=== PATIENT | female | born 1980 | race Asian ===

== ENCOUNTER 2021-10-30 17:30 | Outpatient (CLI) | payer BC | END 2021-10-30 23:59 | disposition home or self-care (01) | LOC: LAB.N 17:30 | PROVIDERS: ATTEND Family Medicine | DX: L02.214 Cutaneous abscess of groin (principal) | CPT/HCPCS: 87070; 87077; 87181; 87205 ==

== ENCOUNTER 2022-03-27 10:35 | Outpatient (CLI) | payer BC ==
[2022-03-27 19:21] LABS: BASOPHILS # (AUTO) 0.1 10^3/uL (0.0-0.1); BASOPHILS % (AUTO) 1.2 %; EOSINOPHILS # (AUTO) 0.4 10^3/uL (0.0-0.7); EOSINOPHILS % (AUTO) 6.1 %; HGB - HEMOGLOBIN 12.8 g/dL (12.0-16.0); LYMPHOCYTES # (AUTO) 2.1 10^3/uL (1.5-3.5); MEAN CORPUSCULAR HEMOGLOBIN 26.8 pg (27.0-31.0); MEAN CORPUSCULAR VOLUME 83.7 fL (81.0-99.0); MEAN PLATELET VOLUME 9.9 fL (7.9-10.8); MONOCYTES # (AUTO) 0.4 10^3/uL (0.0-1.0); MONOCYTES % (AUTO) 5.7 %; NEUTROPHILS # (AUTO) 3.6 10^3/uL (1.5-6.6); NEUTROPHILS % (AUTO) 54.7 %; PLT - PLATELET COUNT 298 10^3/uL (130-450); RED BLOOD COUNT 4.78 10^6/uL (4.20-5.40); RED CELL DISTRIBUTION WIDTH 13.1 % (12.0-15.0); WHITE BLOOD COUNT 6.5 x10^3/uL (4.8-10.8)
[2022-03-27 19:41] LABS: ALBUMIN 4.1 g/dL (3.2-5.5); ALBUMIN/GLOBULIN RATIO 1.1 (1.0-2.2); ALKALINE PHOSPHATASE 52 IU/L (42-121); ALT ALANINE AMINOTRANSFERASE 59 IU/L (10-60); AST ASPARTATE AMINOTRANSFERASE 25 IU/L (10-42); BILIRUBIN,TOTAL 0.5 mg/dL (0.2-1.0); BUN - BLOOD UREA NITROGEN 15 mg/dL (6-20); CALCIUM 9.4 mg/dL (8.5-10.3); CARBON DIOXIDE - CO2 29 mmol/L (21-32); CHLORIDE 105 mmol/L (101-111); CHOL/HDL RATIO 2.4 (<4.4); CHOLESTEROL 161 mg/dL; CREATININE 0.5 mg/dL (0.4-1.0); GFR - MDRD 135 (>89); GLUCOSE 100 mg/dL (70-100); HDL CHOLESTEROL 68 mg/dL; LDL CHOLESTEROL,CALCULATED 83 mg/dL; LDL/HDL RATIO 1.2 (<4.4); POTASSIUM 4.3 mmol/L (3.5-5.0); SODIUM 139 mmol/L (135-145); TOTAL PROTEIN 7.8 g/dL (6.7-8.2); TRIGLYCERIDES 51 mg/dL; VLDL CHOLESTEROL 10 mg/dL
[2022-03-27 19:53] LABS: THYROID STIMULATING HORMONE 0.75 uIU/mL (0.34-5.60)
== END 2022-03-27 10:36 | disposition home or self-care (01) ==
LOC: LAB.N 10:35
PROVIDERS: ATTEND Physician Assistant
DX: Z13.9 Encounter for screening, unspecified (principal); Z13.220 Encounter for screening for lipoid disorders; Z13.29 Encounter for screening for other suspected endocrine disorder
CPT/HCPCS: 36415; 80053; 80061; 83721; 84443; 85025

== ENCOUNTER 2022-07-19 14:48 | Outpatient (CLI) | payer BC ==
--- NOTE | 2022-07-20 11:52 | Mammography Report ---
BILATERAL DIGITAL SCREENING MAMMOGRAM 3D/2D: 07/19/2022 CLINICAL: Baseline exam. Routine screening. No prior exams were available for comparison. Both breasts are heterogeneously dense, which may obscure small masses (category c / 51-75% glandular tissue). There is an oval equal density asymmetry with an obscured, indistinct, and circumscribed margin and p unctate calcifications in the right breast at 1 o'clock anterior depth. No other significant masses, calcifications, or other findings are seen in either breast. IMPRESSION: INCOMPLETE: NEEDS ADDITIONAL IMAGING EVALUATION The oval equal density asymmetry in the right breast most likely is clustered cysts and is indetermin ate. Additional views with possible ultrasound are recommended. This exam was interpreted at Station ID: [id number]. NOTE: For mammograms, a report in lay terms will be sent to the patient. Approximately 15% of breast malignancies will not be visualized mammographically. In the management of a palpable breast mass, a negative mammogram must not discourage biopsy of a clinically suspicious lesion. Electronically Signed By: Deena santiago/miguel:07/20/2022 09:44:55 ACR BI-RADS Category 0: Incomplete 3340F PARENCHYMAL PATTERN: (D) - The breast(s) demonstrate(s) heterogeneously dense fibroglandular pareany ma. BI-RADS CATEGORY: (0) - 0 Mammo and [place] [id number] Immediate follow-up LATERALITY: (B)
== END 2022-07-19 14:49 | disposition home or self-care (01) ==
LOC: DI.N 14:48
DX: Z12.31 Encounter for screening mammogram for malignant neoplasm of breast (principal); R92.8 Other abnormal and inconclusive findings on diagnostic imaging of breast

== ENCOUNTER 2022-08-02 12:37 | Outpatient (CLI) | payer BC ==
--- NOTE | 2022-08-03 11:56 | Ultrasound Report ---
LIMITED ULTRASOUND OF RIGHT BREAST AND AXILLA: 08/02/2022 CLINICAL: Patient returns today to evaluate a focal asymmetry in the right breast. Comparison is made to exams dated: 08/02/2022 mammogram and 07/19/2022 mammogram - [facility]. Color flow ultrasound of the right breast 2 o'clock, retroareolar, and axilla regions was performed. Padilla scale images of the real-time examination were reviewed. There is a 1.3 cm x 1.2 cm x 0.6 cm irregular mass with an angular margin in the right breast at 2 o' clock anterior depth. This correlates with mammography findings. No significant abnormalities were seen sonographically in the right axilla. IMPRESSION: SUSPICIOUS OF MALIGNANCY The 1.3 cm x 1.2 cm x 0.6 cm irregular mass in the right breast likely represents a fibroadenoma and is at a low suspicion for malignancy. An ultrasound guided biopsy is recommended. No significant abnormalities were seen sonographically in the right axilla. Discussed with the patient by Dr. Arnett. Patient is aware of the recommendation for biopsy, but is decid ing whether to pursue 6 month followup instead, which is also reasonable. Dr. Arnett discussed this with the patient and cautioned that she should return if the abnormality changes or enlarges. This exam was interpreted at Station ID: [id number]. Electronically Signed By: Paul Cifuentes M.D. lc/:08/02/2022 13:59:06 Ultrasound BI-RADS: 4a Low suspicion for malignancy BI-RADS CATEGORY: (4a) - Low Susp Biopsy follow-up [id number] Immediate follow-up LATERALITY: (B)
--- NOTE | 2022-08-03 11:56 | Mammography Report ---
UNILATERAL RIGHT DIGITAL DIAGNOSTIC MAMMOGRAM 3D/2D: 08/02/2022 CLINICAL: Patient returns today to evaluate a focal asymmetry in the right breast. Comparison is made to exam dated: 07/19/2022 mammogram - [facility]. The right breast is heterogeneously dense, which may obscure small masses (category c / 51-75% glandu lar tissue). There is a 1.4 cm oval mass with an indistinct margin and grouped calcifications in the right breast at 2 o'clock anterior depth 1 cm from the nipple. This is seen in additional views. No other significant masses or calcifications are seen in the breast. IMPRESSION: INCOMPLETE: NEEDS ADDITIONAL IMAGING EVALUATION The 1.4 cm oval mass in the right breast at 2 o'clock anterior depth is indeterminate. An ultrasound is recommended. This exam was interpreted at Station ID: [id number]. NOTE: For mammograms, a report in lay terms will be sent to the patient. Approximately 15% of breast malignancies will not be visualized mammographically. In the management of a palpable breast mass, a negative mammogram must not discourage biopsy of a clinically suspicious lesion. Electronically Signed By: Paul Cifuentes M.D. lc/:08/02/2022 13:55:44 ACR BI-RADS Category 0: Incomplete 3340F PARENCHYMAL PATTERN: (D) - The breast(s) demonstrate(s) heterogeneously dense fibroglandular tyler triana. BI-RADS CATEGORY: (0) - 0 Ultrasound [id number] Immediate follow-up LATERALITY: (B)
== END 2022-08-02 12:38 | disposition home or self-care (01) ==
LOC: DI 12:37
PROVIDERS: ATTEND Physician Assistant
DX: R92.8 Other abnormal and inconclusive findings on diagnostic imaging of breast (principal)

== ENCOUNTER 2022-11-20 12:01 | Outpatient (CLI) | payer BC ==
--- NOTE | 2022-11-20 12:53 | XRAY Report ---
PROCEDURE: Shoulder 2 View RT INDICATIONS: PAIN IN RIGHT SHOULDER TECHNIQUE: 2 views of the shoulder were acquired. COMPARISON: None. FINDINGS: Bones: No fractures or dislocations. No suspicious bony lesions. Visualized ribs appear intact. Soft tissues: Calcification projects over the rotator cuff. IMPRESSION: 1. Calcific tendinitis of the rotator cuff. 2. No acute fracture. No osseous lesion. If symptoms and/or clinical suspicion for pathology continue , further assessment with repeat plain films, or advanced imaging (e.g., CT, MRI, or bone scan) is re commended for further assessment. Reviewed by: Mini Byrnes MD on 11/20/2022 11:52 AM AMELIE Approved by: Mini Byrnes MD on 11/20/2022 11:52 AM AMELIE Station ID: [id number]
== END 2022-11-20 12:02 | disposition home or self-care (01) ==
LOC: DI 12:01
PROVIDERS: ATTEND Physician Assistant
DX: M75.31 Calcific tendinitis of right shoulder (principal)

== ENCOUNTER 2023-06-24 13:17 | Inpatient (IN) | payer BC ==
[2023-06-24] MEDS ORDERED: ONDANSETRON 4 MG/2 ML VIAL IVP STA (13:41)
[2023-06-24] MEDS ORDERED: SODIUM CHLORIDE 0.9% 1,000 ML IV STA (13:41)
[2023-06-24] MEDS ORDERED: MORPHINE 2 MG/ML CARPUJECT IVP STA (13:41)
--- NOTE | 2023-06-24 13:45 | ED Physician Documentation ---
PD HPI ABD PAIN - Stated complaint Stated Complaint: SHARP ABD PX - Chief complaint Chief Complaint: Abd Pain - History obtained from History obtained from: Patient, Family - Additional information Additional information: 42-year-old female with no reported past medical history presents by private vehicle from home for 1 day of severe abdominal pain, worse in the midepigastric region. History obtained with help of at bedside, as patient is moaning and clutching her abdomen. states that they thought her symptoms were due to constipation, but today her pain significantly worsened, prompting them to come to the emergency department. Patient reports associated diarrhea, denies nausea or vomiting. Reports history of , denies history of intra-abdominal surgeries. Review of Systems Constitutional: denies: Fever, Chills Cardiac: denies: Chest pain / pressure, Palpitations, Calf pain GI: reports: Abdominal Pain, Diarrhea. 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 - Present Medications Home Medications: Ambulatory Orders Medication Instructions Recorded Confirmed No Known Home Medications 06/24/23 06/24/23 - Allergies Allergies/Adverse Reactions: Allergies Allergy/AdvReac Type Severity Reaction Status Date / Time No Known Drug Allergies Allergy Verified 06/24/23 13:25 - Social History Does the pt smoke?: No Smoking Status: Never smoker PD ED PE NORMAL - Vitals Vital signs reviewed: Yes - General General: Alert and oriented X 3, Other (IN PAIN) - HEENT HEENT: Atraumatic - Neck Neck: Supple, no meningeal sign - Cardiac Cardiac: RRR, Strong equal pulses - Respiratory Respiratory: No respiratory distress, Clear bilaterally - Abdomen Abdomen: Soft, Non distended, Other (generalized tenderness to palpation. No rebound. 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, No motor deficit, Normal speech Results - Vitals Vitals: Vital Signs - 24 hr 06/24/23 06/24/23 06/24/23 13:26 14:18 15:52 Temperature 36.2 C L 36.6 C Heart Rate 70 78 104 H Respiratory 15 18 18 Rate Blood Pressure 104/59 L 106/66 114/71 O2 Saturation 100 96 100 Oxygen O2 Source Room air - Labs Labs: Laboratory Tests 06/24/23 06/24/23 06/24/23 13:55 13:55 13:55 WBC 13.9 H RBC 4.89 Hgb 12.7 Hct 40.0 MCV 81.8 MCH 26.0 L MCHC 31.8 L RDW 13.3 Plt Count 300 MPV 9.1 Neut # (Auto) 11.0 H Lymph # (Auto) 1.6 [place] # (Auto) 1.2 H Eos # (Auto) 0.0 Baso # (Auto) 0.1 Absolute Nucleated RBC 0.00 Nucleated RBC % 0.0 Sodium 132 L Potassium 3.8 Chloride 100 L Carbon Dioxide 21 Anion Gap 11.0 BUN 10 Creatinine 0.5 L Estimated GFR (MDRD) 135 Glucose 133 H Lactic Acid 1.0 Calcium 9.3 Total Bilirubin 0.7 AST 23 ALT 21 Alkaline Phosphatase 47 Total Protein 8.1 Albumin 4.5 Globulin 3.6 Albumin/Globulin Ratio 1.3 Lipase < 10 L Serum HCG, Qual Nasal Adenovirus (PCR) Nasal B. parapertussis DNA (PCR) Nasal Coronavir 229E PCR Nasal Coronavir HKU1 PCR Nasal Coronavir NL63 PCR Nasal Coronavir OC43 PCR Nasal Enterovir/Rhinovir PCR Nasal Influenza B PCR Nasal Influenza A PCR Nasal Parainfluen 1 PCR Nasal Parainfluen 2 PCR Nasal Parainfluen 3 PCR Nasal Parainfluen 4 PCR Nasal RSV (PCR) Nasal B.pertussis DNA PCR Nasal C.pneumoniae (PCR) [place] Human Metapneumo PCR Nasal M.pneumoniae (PCR) Nasal SARS-CoV-2 (PCR) 06/24/23 06/24/23 13:55 14:23 WBC RBC Hgb Hct MCV MCH MCHC RDW Plt Count MPV Neut # (Auto) Lymph # (Auto) [place] # (Auto) Eos # (Auto) Baso # (Auto) Absolute Nucleated RBC Nucleated RBC % Sodium Potassium Chloride Carbon Dioxide Anion Gap BUN Creatinine Estimated GFR (MDRD) Glucose Lactic Acid Calcium Total Bilirubin AST ALT Alkaline Phosphatase Total Protein Albumin Globulin Albumin/Globulin Ratio Lipase Serum HCG, Qual NEGATIVE Nasal Adenovirus (PCR) NOT DETECTED Nasal B. parapertussis DNA (PCR) NOT DETECTED Nasal Coronavir 229E PCR NOT DETECTED Nasal Coronavir HKU1 PCR NOT DETECTED Nasal Coronavir NL63 PCR NOT DETECTED Nasal Coronavir OC43 PCR NOT DETECTED Nasal Enterovir/Rhinovir PCR NOT DETECTED Nasal Influenza B PCR NOT DETECTED Nasal Influenza A PCR NOT DETECTED Nasal Parainfluen 1 PCR NOT DETECTED Nasal Parainfluen 2 PCR NOT DETECTED Nasal Parainfluen 3 PCR NOT DETECTED Nasal Parainfluen 4 PCR NOT DETECTED Nasal RSV (PCR) NOT DETECTED Nasal B.pertussis DNA PCR NOT DETECTED Nasal C.pneumoniae (PCR) NOT DETECTED [place] Human Metapneumo PCR NOT DETECTED Nasal M.pneumoniae (PCR) NOT DETECTED Nasal SARS-CoV-2 (PCR) NOT DETECTED PD Medical Decision Making - ED course Complexity details: reviewed old records, reviewed results, re-evaluated patient, considered differential, d/w patient, d/w family ED course: Patient presenting for abdominal pain, but does appear to be in moderate to severe discomfort. Abdomen is soft but patient cries whenever any part of her abdomen is palpated. Vital signs are reviewed, no acute derangements. Plan to order laboratory work, CT imaging of the abdomen and pelvis. Medications for pain, nausea ordered. .Laboratory work significant for leukocytosis with WBC 13, lactic acid 1.0, kidney function normal. CT of the abdomen and pelvis with contrast shows suspected acute nonperforated appendicitis with surrounding inflammatory changes. Call placed to Dr. Jaquez of general surgery, who requested notification of the OR team and will take patient to surgery today. Zosyn ordered for coverage. Patient and at bedside informed of plan and are in agreement Departure - Departure Disposition: ED Transfer to [facility] Clinical Impression: Acute appendicitis Forms: PCP List
[2023-06-24 13:58] LABS: BASOPHILS # (AUTO) 0.1 10^3/uL (0.0-0.1); BASOPHILS % (AUTO) 0.4 %; EOSINOPHILS % (AUTO) 0.2 %; HGB - HEMOGLOBIN 12.7 g/dL (12.0-16.0); LYMPHOCYTES # (AUTO) 1.6 10^3/uL (1.5-3.5); LYMPHOCYTES % (AUTO) 11.4 %; MEAN CORPUSCULAR HGB CONC 31.8 g/dL (32.0-36.0); MEAN CORPUSCULAR VOLUME 81.8 fL (81.0-99.0); MEAN PLATELET VOLUME 9.1 fL (7.9-10.8); MONOCYTES # (AUTO) 1.2 10^3/uL (0.0-1.0); MONOCYTES % (AUTO) 8.3 %; NEUTROPHILS % (AUTO) 79.3 %; PLT - PLATELET COUNT 300 10^3/uL (130-450); RED BLOOD COUNT 4.89 10^6/uL (4.20-5.40); RED CELL DISTRIBUTION WIDTH 13.3 % (12.0-15.0); WHITE BLOOD COUNT 13.9 x10^3/uL (4.8-10.8)
[2023-06-24 14:12] LABS: ALBUMIN 4.5 g/dL (3.2-5.5); ALBUMIN/GLOBULIN RATIO 1.3 (1.0-2.2); ALKALINE PHOSPHATASE 47 IU/L (42-121); ALT ALANINE AMINOTRANSFERASE 21 IU/L (10-60); AST ASPARTATE AMINOTRANSFERASE 23 IU/L (10-42); BILIRUBIN,TOTAL 0.7 mg/dL (0.2-1.0); BUN - BLOOD UREA NITROGEN 10 mg/dL (6-20); CALCIUM 9.3 mg/dL (8.5-10.3); CARBON DIOXIDE - CO2 21 mmol/L (21-32); CHLORIDE 100 mmol/L (101-111); CREATININE 0.5 mg/dL (0.6-1.3); GFR - MDRD 135 (>89); GLUCOSE 133 mg/dL (74-104); POTASSIUM 3.8 mmol/L (3.5-4.5); SODIUM 132 mmol/L (135-145); TOTAL PROTEIN 8.1 g/dL (6.4-8.9)
[2023-06-24 14:15] LABS: LIPASE < 10 U/L (11-82)
[2023-06-24] MEDS ORDERED: HYDROmorphone 1 MG/ML CARPUJECT IVP STA (14:44)
[2023-06-24] MEDS ORDERED: PROMETHAZINE INJ 25 MG in SODIUM CHLORIDE 0.9% 50 ML IV STA (14:57)
[2023-06-24] MEDS ORDERED: PROMETHAZINE 25 MG/1 ML VIAL ONE (15:11)
[2023-06-24 15:23] LABS: B. PARAPERTUSSIS- RESP PCR PAN NOT DETECTED; B. PERTUSSIS- RESP PCR PANEL NOT DETECTED; C. PNEUMONIAE- RESP PCR PANEL NOT DETECTED; CORONAVIRUS 229E-RESP PCR NOT DETECTED; CORONAVIRUS HKU1-RESP PCR NOT DETECTED; CORONAVIRUS NL63-RESP PCR NOT DETECTED; CORONAVIRUS OC43-RESP PCR NOT DETECTED; HUMAN METAPNEUMOVIRUS NOT DETECTED; INFLUENZA A- RESP PCR PANEL NOT DETECTED; INFLUENZA B - RESP PCR PANEL NOT DETECTED; M. PNEUMONIAE- RESP PCR PANEL NOT DETECTED; PARAINFLUENZA VIRUS 1 NOT DETECTED; PARAINFLUENZA VIRUS 2 NOT DETECTED; PARAINFLUENZA VIRUS 3 NOT DETECTED; PARAINFLUENZA VIRUS 4 NOT DETECTED; RHINOVIRUS/ENTEROVIRUS NOT DETECTED; RSV- RESP PCR PANEL NOT DETECTED; SARS-CoV-2 -RESP PCR PANEL NOT DETECTED
[2023-06-24] MEDS ORDERED: iohexoL-300 100 ML VIAL IVP ONE (15:39)
[2023-06-24 15:58] LABS: HCG,QUALITATIVE BLOOD NEGATIVE
--- NOTE | 2023-06-24 16:38 | CT Report ---
PROCEDURE: ABDOMEN/PELVIS W INDICATIONS: SEVERE MIDEPIGASTRIC ABD PAIN CONTRAST: Omni 300 100ml TECHNIQUE: After the administration of intravenous contrast, 5 mm thick sections acquired from the diaphragms to the symphysis. 5 mm thick coronal and sagittal reformats were acquired. For radiation dose reducti on, the following was used: automated exposure control, adjustment of mA and/or kV according to chandni ent size. COMPARISON: None. FINDINGS: Image quality: Excellent. Lung bases and heart: Small hiatal hernia. Liver: No solid mass. Gallbladder and biliary tree: No radiopaque stones or wall thickening. No biliary dilation. Spleen: No splenomegaly. Pancreas: No pancreatic ductal dilation. Adrenals: No adrenal nodule. Kidneys and ureters: No hydronephrosis. No renal cystic lesion which requires follow up. No solid mas s. Bowel and peritoneum: 5 mm appendicolith at the base of the appendix, with moderate distention of the appendix (series 9, image 33), with wall thickening. Small volume free fluid and reactive ileus of t he small bowel. Lymph nodes: No central or retroperitoneal adenopathy. Vessels: No infrarenal aortic aneurysm. PELVIS Reproductive organs: Unremarkable. Bladder: No abnormal wall thickening, accounting for underdistension. Pelvic lymph nodes: No pelvic adenopathy by size criteria. Bones: No aggressive osseous abnormality. Other: No significant ventral or inguinal hernia. IMPRESSION: Suspected nonperforated acute appendicitis, caused by an obstructing appendicolith. Small hiatal hernia. Reviewed by: Epi Nolan MD on 06/24/2023 4:37 PM PST Approved by: Epi Nolan MD on 06/24/2023 4:37 PM PST Station ID: [id number]
[2023-06-24] MEDS ORDERED: PIPERACILLIN/TAZOBACTAM 3.375 GM in SODIUM CHLORIDE 0.9% MINIBAG 100 ML IV STA (16:48)
[2023-06-24 17:23] LABS: BILIRUBIN,URINE NEGATIVE (NEGATIVE); GLUCOSE, URINE (UA) NEGATIVE (NEGATIVE); KETONES,URINE (UA) 15 mg/dL (NEGATIVE); LEUKOCYTE ESTERASE, URINE NEGATIVE (NEGATIVE); NITRITE,URINE NEGATIVE (NEGATIVE); OCCULT BLOOD,URINE MODERATE (NEGATIVE); PROTEIN,URINE TRACE mg/dL (NEGATIVE); UROBILINOGEN,URINE 0.2 (NORMAL) E.U./dL (NORMAL)
[2023-06-24 17:26] LABS: CLARITY,URINE CLEAR (CLEAR)
[2023-06-24] MEDS ORDERED: ATROPINE ABBOJECT 1 MG/10 ML SYRINGE IVP PRN (17:35)
[2023-06-24] MEDS ORDERED: fentaNYL 100 MCG/2 ML VIAL IVP PRN (17:35)
[2023-06-24] MEDS ORDERED: NALOXONE 0.4 MG/ML VIAL IVP PRN (17:35)
[2023-06-24] MEDS ORDERED: HYDROmorphone 0.5 MG/0.5 ML SYRINGE IVP PRN ×2 (17:35→20:07)
[2023-06-24] MEDS ORDERED: MORPHINE 2 MG/ML CARPUJECT IVP PRN (17:35)
[2023-06-24] MEDS ORDERED: ONDANSETRON 4 MG/2 ML VIAL IVP PRN ×2 (17:35→20:07)
--- NOTE | 2023-06-24 17:35 | ANESTHESIA ---
Pre-Anesthesia VS, & Labs - Diagnosis Acute appendicitis - Procedure Lap Appy Vital Signs: Temp Pulse Resp BP Pulse Ox O2 Flow Rate 36.6 C 104 H 18 114/71 100 06/24/23 15:52 06/24/23 15:52 06/24/23 15:52 06/24/23 15:52 06/24/23 15:52 Height: 5 ft 2 in Weight (kg): 63.957 kg Body Mass Index: 25.7 BMI Classification: Overweight - NPO Last Food Intake: 1000 cereal - Is Patient ?: No - Lab Results Current Lab Results: Laboratory Tests 06/24/23 13:55: Serum HCG, Qual NEGATIVE 06/24/23 13:55: Lactic Acid 1.0 06/24/23 13:55: Sodium 132 L, Potassium 3.8, Chloride 100 L, Carbon Dioxide 21, Anion Gap 11.0, BUN 10, Creatinine 0.5 L, Estimated GFR (MDRD) 135, Glucose 133 H, Calcium 9.3, Total Bilirubin 0.7, AST 23, ALT 21, Alkaline Phosphatase 47, Total Protein 8.1, Albumin 4.5, Globulin 3.6, Albumin/Globulin Ratio 1.3, Lipase < 10 L 06/24/23 13:55: WBC 13.9 H, RBC 4.89, Hgb 12.7, Hct 40.0, MCV 81.8, MCH 26.0 L, MCHC 31.8 L, RDW 13.3, Plt Count 300, MPV 9.1, Neut # (Auto) 11.0 H, Lymph # (Auto) 1.6, [place] # (Auto) 1.2 H, Eos # (Auto) 0.0, Baso # (Auto) 0.1, Absolute Nucleated RBC 0.00, Nucleated RBC % 0.0 Lab results reviewed: Yes Fish Bones: 06/24/23 13:55 06/24/23 13:55 Home Medications and Allergies Home Medications: Ambulatory Orders No Known Home Medications 06/24/23 No Known Home Medications 06/24/23 Allergies/Adverse Reactions: Allergies Allergy/AdvReac Type Severity Reaction Status Date / Time No Known Drug Allergies Allergy Verified 06/24/23 13:25 Anes History & Medical History - Anesthetic History Family history of Anesthesia Complications: Denies Family history of Malignant Hyperthermia: Denies - Medical History Cardiovascular: reports: None Pulmonary: reports: None Gastrointestinal: reports: None Urinary: reports: None Neuro: reports: None Musculoskeletal: reports: None Endocrine/Autoimmune: reports: None Blood Disorders: reports: None Skin: reports: None Smoking Status: Never smoker Psychosocial: reports: No issues indicated History of Cancer?: No - Surgical History Gynecologic: reports: section Exam General: Alert, Oriented x3, Cooperative, No acute distress Dental: WNL Mouth Openin Fingerbreadth Neck Mobility: Normal Mallampati classification: II Thyromental Distance: 4-6 cm Mental/Cognitive Status: Alert/Oriented X3, Normal for patient Plan Anesthesia Type: General Consent for Procedure(s) Verified and Reviewed: Yes Code Status: Attempt Resuscitation ASA classification: 1-Healthy patient Is this case an emergency?: Yes
[2023-06-24 17:40] LABS: BACTERIA,URINE None Seen /HPF (None Seen); RBC,URINE 0-5 /HPF (0-5); SQUAMOUS EPITHELIAL CELL,UR MOD Squamous (<= Few); WBC,URINE 0-3 /HPF (0-5)
[2023-06-24] MEDS ORDERED: PROPOFOL 200 MG/20 ML VIAL IVP ONE (17:45)
[2023-06-24] MEDS ORDERED: ROCURONIUM 50 MG/5 ML VIAL ONE (17:45)
[2023-06-24] MEDS ORDERED: MIDAZOLAM 2 MG/2 ML VIAL ONE (17:45)
[2023-06-24] MEDS ORDERED: fentaNYL 100 MCG/2 ML VIAL ONE (17:46)
--- NOTE | 2023-06-24 17:52 | HISTORY & PHYSICAL EXAMINATION ---
Chief Complaint - Chief Complaint Chief Complaint: abdominal pain History of Present Illness - History Obtained From Records Reviewed: yes History obtained from: pt Exam Limitations: none - History of Present Illness HPI Comment/Other: abdominal pain x almost 24 hours. 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/Allgy - Home Medications Home Medications: Ambulatory Orders Medication Instructions Recorded Confirmed No Known Home Medications 06/24/23 06/24/23 - Allergies Allergies/Adverse Reactions: Allergies Allergy/AdvReac Type Severity Reaction Status Date / Time No Known Drug Allergies Allergy Verified 06/24/23 13:25 Review of Systems - Other Findings Other Findings: 10 pt ros as above otherwise unremarkable Exam - Vital Signs Vital Signs: Vital Signs x48h Temp Pulse Resp BP Pulse Ox 06/24/23 17:49 38.6 C H 118 H 18 116/64 100 06/24/23 15:52 36.6 C 104 H 18 114/71 100 06/24/23 14:18 78 18 106/66 96 06/24/23 13:26 36.2 C L 70 15 104/59 L 100 - Physical Exam General Appearance: positive: Alert, Mild distress, Other (appears very uncomfortable) ENT: positive: No signs of dehydration Neck: positive: No JVD, Trachea midline Respiratory: positive: No respiratory distress Cardiovascular: positive: Tachycardia, Other Abdomen: positive: No distention, Other (diffuse tenderness with guarding) Neurologic/Psychiatric: positive: Oriented x3 Conclusion/Plan - Problem List (1) Appendicitis, acute, with generalized peritonitis Conclusion/Plan: plan appendectomy. parq held and consent obtained - Lab Results Lab results reviewed: Yes Fish Bones: 06/24/23 13:55 06/24/23 13:55 - Diagnostic Imaging Results Diagnostic Imaging Results: positive: Other (appedicitis. very poor quality ct)
[2023-06-24] MEDS ORDERED: LACTATED RINGERS 1,000 ML IV SCH (18:00)
[2023-06-24] MEDS ORDERED: BUPIVACAINE 0.25% PF 30 ML VIAL ONE (18:17)
[2023-06-24] MEDS ORDERED: ACETAMINOPHEN 1,000 MG/100 ML 1,000 MG/100 ML BAG IV ONE (18:39)
[2023-06-24] MEDS ORDERED: DEXAMETHASONE 4 MG/ML VIAL ONE (18:42)
[2023-06-24] MEDS ORDERED: ONDANSETRON 4 MG/2 ML VIAL ONE (18:42)
[2023-06-24] MEDS ORDERED: BUPIVACAINE 0.25% PF 30 ML VIAL SUBQ ONE ×2 (19:13)
[2023-06-24] MEDS ORDERED: KETOROLAC 30 MG/ML VIAL ONE (19:35)
[2023-06-24] MEDS ORDERED: SUGAMMADEX 200 MG/2 ML VIAL IVP ONE (19:36)
[2023-06-24] MEDS ORDERED: HYDROmorphone 1 MG/ML CARPUJECT ONE (19:44)
[2023-06-24] MEDS ORDERED: LACTATED RINGERS 200 ML IV ONE (20:05)
[2023-06-24] MEDS ORDERED: ONDANSETRON ODT 4 MG TABLET TL PRN (20:07)
[2023-06-24] MEDS ORDERED: SODIUM CHLORIDE FLUSH 0.9% 10 ML SYRINGE IVP PRN (20:07)
--- NOTE | 2023-06-24 20:17 | OPERATIVE REPORT ---
Operative Report - General Procedure Date: 06/24/23 Planned Procedure: lap appy Pre-Op Diagnosis: appendicitis with generalized peritonitis Procedure Performed: lap appy Post Op Diagnosis: ruptured appendix with diffuse purulence and peritonitis - Procedure Note Primary Surgeon: michael hunt Anesthesia Technique: General ET tube, Local Pathology: appendix Estimated Blood Loss (mL): 2 Drain/Tube Type: Roc drain Indications: appendicitis with peritonitis Findings: as above. few small spots endometriosis pelvis Complications: none - Other Other Information/Narrative: The patient was properly identified brought to the operating room and placed in supine position. Sequential compression devices were placed she was previously given IV antibiotics in the emergency department. She was prepped and draped in a sterile fashion. Local anesthetic was given to incision areas. An incision was made infraumbilical. Section proceeded down to the fascia. The fascia was incised lifted upwards and abdomen entered with a Veress needle. A 12 mm trocar with 30 degree scope was placed. There was no evidence of injury from Veress needle or trocar placement. Under direct vision a 5 mm trocar was placed suprapubic and a 5 mm trocar was placed in the right upper quadrant. Patient had thick green pus throughout her abdomen. She had fibrinous exudate over much of the bowel on right side of the abdomen. The appendix was identified. The appendix was retracted anterior. Lateral attachments were partially taken down to allow for further mobilization of the appendix. A plane was created between the mesoappendix and the appendix. The mesoappendix was divided with an Endo KOBE vascular load. The appendix was divided at the cecum with an Endo KOBE i ntestinal load. Appendix was placed in an Endo Catch bag and brought out. The abdomen was thoroughly irrigated. There were no apparent complications. A 15 round Roc drain was placed through the suprapubic incision. Drain was secured with a 3-0 nylon. Trocars were removed under direct vision. CO2 was evacuated and hemostasis assured. Fascia at the infraumbilical site was closed with a run lilian 0 Vicryl suture. Subcutaneous tissue was irrigated. Umbilical skin was loosely reapproximated with a single buried interrupted 4-0 Monocryl. Dressings were applied. She tolerated the procedure well was awakened and brought to recovery in good condition.
[2023-06-24] MEDS: PIPERACILLIN/TAZOBACTAM 3.375 GM in SODIUM CHLORIDE 0.9% MINIBAG 100 ML IV SCH (21:24)
[2023-06-24] MEDS: D5.45NS W/20 MEQ KCL 1,000 ML IV SCH (21:24)
--- NOTE | 2023-06-24 22:42 | ANESTHESIA POST OP EVALUATION ---
Anesthesia Post Eval - Post Anesthesia Eval Vitals: Last Vital Signs Temp 36.6 C 06/24/23 22:25 Pulse 94 06/24/23 22:25 Resp 16 06/24/23 22:25 BP 101/64 06/24/23 22:25 Pulse Ox 94 06/24/23 22:25 O2 Flow Rate 2 06/24/23 21:52 CV Function Including HR & BP: Stable Pain Control: Satisfactory Nausea & Vomiting: Negative Mental Status: Baseline Respiratory Status: Airway Patent Hydration Status: Satisfactory Anesthesia Complications: None
[2023-06-25] MEDS: SODIUM CHLORIDE FLUSH 0.9% 10 ML SYRINGE IVP SCH ×3 (00:13→16:37)
[2023-06-25] MEDS: PIPERACILLIN/TAZOBACTAM 3.375 GM in SODIUM CHLORIDE 0.9% MINIBAG 100 ML IV SCH ×3 (05:04→20:45)
[2023-06-25] MEDS: D5.45NS W/20 MEQ KCL 1,000 ML IV SCH ×2 (05:08→17:09)
[2023-06-25] MEDS: oxyCODONE 5 MG TABLET PO PRN ×4 (06:58→20:44)
[2023-06-25] MEDS: ACETAMINOPHEN 325 MG TABLET PO PRN ×3 (08:10→19:11)
[2023-06-25] MEDS: HEPARIN 5,000 UNIT/ML VIAL SUBQ SCH ×2 (08:11→20:45)
[2023-06-25] MEDS ORDERED: LACTATED RINGERS 1,000 ML IV ONE (09:01)
--- NOTE | 2023-06-25 15:55 | PROVIDER PROGRESS NOTE ---
Subjective - Subjective Pt reports feeling: Improved (still with diffuse abdminal pain however improved.) Objective - Vital Signs/Intake & Output Vital Signs: Vital Signs x48h Temp Pulse Resp BP Pulse Ox 06/25/23 13:33 96/57 L 06/25/23 10:16 107/68 06/25/23 08:55 36.7 C 71 16 89/53 L 98 Intake & Output: Intake & Output 06/22/23 06/23/23 06/24/23 06/25/23 23:59 23:59 23:59 23:59 Intake Total 1237.5 3856.250 Output Total 60 1800 Balance 1177.5 2056.250 - Objective General Appearance: positive: No acute distress, Alert, Lethargic Respiratory: positive: No respiratory distress Abdomen: positive: No distention Neurologic/Psychiatric: positive: Oriented x3 - Lab Results Fish Bones: 06/24/23 13:55 06/24/23 13:55 Other Labs: Lab Results x24hrs 06/24/23 06/24/23 Range/Units 17:15 13:55 Serum HCG, Qual NEGATIVE Urine Color YELLOW Urine Clarity CLEAR (CLEAR) Urine pH 5.0 (5.0-7.5) PH Ur Specific [place] 1.010 (1.002-1.030) Urine Protein TRACE (NEGATIVE) mg/dL Urine Glucose (UA) NEGATIVE (NEGATIVE) mg/dL Urine Ketones 15 H (NEGATIVE) mg/dL Urine Occult Blood MODERATE H (NEGATIVE) Urine Nitrite NEGATIVE (NEGATIVE) Urine Bilirubin NEGATIVE (NEGATIVE) Urine Urobilinogen 0.2 (NORMAL) (NORMAL) E.U./dL Ur Leukocyte Esterase NEGATIVE (NEGATIVE) Urine RBC 0-5 (0-5) /HPF Urine WBC 0-3 (0-5) /HPF Ur Squamous Epith Cells MOD Squamous H (<= Few) Urine Bacteria None Seen (None Seen) /HPF Ur Microscopic Review INDICATED Urine Culture Comments NOT INDICATED Assessment/Plan - Problem List (1) Appendicitis, acute, with generalized peritonitis Impression: improved. continue present care. home when tolerating po well and pain much improved, tomorrow at the earliest.
[2023-06-26] MEDS: ACETAMINOPHEN 325 MG TABLET PO PRN ×3 (00:02→23:05)
[2023-06-26] MEDS: oxyCODONE 5 MG TABLET PO PRN ×4 (00:46→23:06)
[2023-06-26] MEDS: SODIUM CHLORIDE FLUSH 0.9% 10 ML SYRINGE IVP SCH ×3 (00:48→19:30)
[2023-06-26] MEDS: D5.45NS W/20 MEQ KCL 1,000 ML IV SCH ×2 (01:05→08:47)
[2023-06-26] MEDS: PIPERACILLIN/TAZOBACTAM 3.375 GM in SODIUM CHLORIDE 0.9% MINIBAG 100 ML IV SCH ×3 (05:25→21:34)
[2023-06-26] MEDS: HEPARIN 5,000 UNIT/ML VIAL SUBQ SCH ×2 (08:47→21:35)
[2023-06-26] MEDS ORDERED: D5.45NS W/20 MEQ KCL 1,000 ML IV SCH (12:54)
--- NOTE | 2023-06-26 12:57 | PROVIDER PROGRESS NOTE ---
Subjective - Subjective Pt reports feeling: Improved (still uncomfortable and tired however improved. denies nausea) Objective - Vital Signs/Intake & Output Reviewed Vital Signs: Yes Vital Signs: Vital Signs x48h Temp Pulse Resp BP Pulse Ox 06/26/23 07:58 37.2 C 96 16 102/61 99 Intake & Output: Intake & Output 06/23/23 06/24/23 06/25/23 06/26/23 23:59 23:59 23:59 23:59 Intake Total 1237.5 5039.584 2030.0 Output Total 60 2765 750 Balance 1177.5 2274.584 1280.0 - Objective General Appearance: positive: No acute distress, Alert Neck: positive: No JVD, Trachea midline Respiratory: positive: No respiratory distress Abdomen: positive: Other (she is currently ambulating in the halls. rober vazquez and cloudy) Neurologic/Psychiatric: positive: Oriented x3 - Lab Results Fish Bones: 06/24/23 13:55 06/24/23 13:55 Assessment/Plan - Problem List (1) Appendicitis, acute, with generalized peritonitis Impression: decrease ivf otherwise continue present care
[2023-06-27 00:22] VITALS: O2SAT 98
[2023-06-27] MEDS: SODIUM CHLORIDE FLUSH 0.9% 10 ML SYRINGE IVP SCH (04:53)
[2023-06-27] MEDS: PIPERACILLIN/TAZOBACTAM 3.375 GM in SODIUM CHLORIDE 0.9% MINIBAG 100 ML IV SCH (04:53)
[2023-06-27] MEDS: ACETAMINOPHEN 325 MG TABLET PO PRN (06:05)
[2023-06-27 10:16] VITALS: BP 97/62
--- NOTE | 2023-06-27 11:17 | Discharge Plan ---
Discharge Plan Problem Reviewed?: Yes Disposition: Home, Self Care Prescriptions: Amox/Clav 875/125 [Augmentin 875/125 Tab] 1 tablet PO Q12H 3 Days #6 tablet HYDROcod/ACETAM 5/325 [[place] 5/325] 1 each PO Q6H PRN #20 tablet PRN Reason: Pain Ondansetron Odt [Zofran Odt] 4 mg PO Q6H PRN #10 tablet PRN Reason: Nausea / Vomiting Diet: Regular (diet as tolerated) Activity Restrictions: Additional Comments (no soaking in a tub for 2 weeks no work 06/23/2023- 07/10/2023) Shower Restrictions: No (ok to shower and get the incisions wet. ) Driving Restrictions: Yes (no driving while taking prescription pain pills) Health Concerns: recent ruptured appendix Plan of Treatment: surgery 06/24/2023 Assessment: improved after surgery and with iv antibiotics No Smoking: If you smoke, Please STOP! Call for help.
--- NOTE | 2023-06-27 11:24 | DISCHARGE SUMMARY ---
"Discharge Summary Admit Date: 06/24/23 Discharge Date: 06/27/23 Discharging Provider: michael hunt Code Status: Attempt Resuscitation Condition at Discharge: Good Discharge Facility Name: [facility] - DIAGNOSES Admission Diagnoses: appendicitis with diffuse peritonitis Discharge Diagnoses with Status of Each Condition: ruptured appendix with diffuse purulence and peritonitis home in good condition. afebrile, tolerating diet, ambulating safely - HPI History of Present Illness: presented to hospital 06/24/2023 in distress with generalized peritontitis. surgery 06/24/2023 laparoscopic with drain placement for ruptured appendix and diffuse purulence throughout the abdomen - CONSULTS | PROCEDURES Procedures: as above - ALLERGIES Allergies/Adverse Reactions: Allergies Allergy/AdvReac Type Severity Reaction Status Date / Time No Known Drug Allergies Allergy Verified 06/24/23 13:25 - MEDICATIONS Home Medications: Ambulatory Orders Medication Instructions Recorded Confirmed Amox/Clav 875/125 [Augmentin 1 tablet PO Q12H 3 Days #6 tablet 06/24/23 875/125 Tab] HYDROcod/ACETAM 5/325 [[place] 5/325] 1 each PO Q6H PRN #20 tablet 06/24/23 Ondansetron Odt [Zofran Odt] 4 mg PO Q6H PRN #10 tablet 06/24/23 - LABS Result Diagrams: 06/24/23 13:55 06/24/23 13:55 - QUALITY (Female Hip Fx Only) Was patient sent home on osteoporosis medication?: No - FOLLOW UP Follow Up: call the surgery office with any concerns and call for an office nurse post op appointment. [phone] your drain should be removed when output is clear or when output is less than 10 ml per day if still cloudy. advance diet as tolerated use miralax, colace, milk of magnesia, prune juice as needed for constipation please make an appointment week of 06/28 for drain removal and week of 07/05 for an additional recheck no work 06/23/2023 through 07/10/2023 [phone]"
== END 2023-06-27 15:50 | disposition home or self-care (01) | DRG 399 ==
LOC: ED 13:17 → SDS 18:06 → MS2 20:07
PROVIDERS: ADMIT Surgery; ATTEND Surgery
PROC: 0DTJ4ZZ Resection of Appendix, Percutaneous Endoscopic Approach (ICD-10-PCS; principal; 2023-06-24 18:00)
DX: K35.201 Acute appendicitis with generalized peritonitis, with perforation, without abscess (principal); N80.30 Endometriosis of pelvic peritoneum, unspecified; Z11.52 Encounter for screening for COVID-19
CPT/HCPCS: 36415; 74177; 80053; 81001; 83605; 83690; 84703; 85025; 87633; A9270; J0131; J1170; J7040; J7120; Q9967; 81003; 87086

== ENCOUNTER 2023-10-03 12:43 | Outpatient (CLI) | payer BC ==
--- NOTE | 2023-10-04 10:19 | Ultrasound Report ---
LIMITED ULTRASOUND OF RIGHT BREAST: 10/03/2023 CLINICAL: Patient returns today to evaluate a focal asymmetry in the right breast. Comparison is made to exams dated: 10/03/2023 mammogram, 08/02/2022 ultrasound, 08/02/2022 mammogram, an d 07/19/2022 mammogram - [facility]. Color flow and real-time ultrasound of the right breast 2 o'clock, and retroareolar regions were perf ormed. Padilla scale images of the real-time examination were reviewed. There is a 1.5 cm x 1 cm x 0.6 cm irregular mass with an angular margin in the right breast at 2 o'cl ock anterior depth. This abnormality is not significantly changed and correlates with mammography fi ndings. IMPRESSION: PROBABLY BENIGN The 1.5 cm x 1 cm x 0.6 cm irregular mass in the right breast likely represents a fibroadenoma and is probably benign. Patient refused the previously recommended biopsy. A follow-up right ultrasound in 6 months is recommended to demonstrate stability. This exam was interpreted at Station ID: [id number]. Electronically Signed By: Bob donnelly/miguel:10/04/2023 07:23:42 Ultrasound BI-RADS: 3 Probably benign BI-RADS CATEGORY: (3) - 3 Ultrasound [id number] 6 month follow-up LATERALITY: (R)
--- NOTE | 2023-10-04 10:19 | Mammography Report ---
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 Due for bilateral exam. Comparison is made to exams dated: 08/02/2022 mammogram, 07/19/2022 mammogram, and 08/02/2022 ultrasoun d - [facility]. Both breasts are heterogeneously dense, which may obscure small masses (category c / 51-75% glandular tissue). There is a 1.4 cm oval mass with an indistinct margin and grouped calcifications in the right breast at 2 o'clock in the retroareolar region 1 cm from the nipple. This is not significantly changed. No other significant masses, calcifications, or other findings are seen in either breast. IMPRESSION: INCOMPLETE: NEEDS ADDITIONAL IMAGING EVALUATION The 1.4 cm oval mass in the right breast at 2 o'clock in the retroareolar region is indeterminate. A n ultrasound is recommended. Based on the Tyrer Cuzick model (a risk assessment model) the patient's lifetime risk is 15.8% and he r 10 year risk is 2.6%. According to the ACR, ACS, and NCCN guidelines, an annual breast MRI exam juan ng with mammogram is recommended if the patient's lifetime risk is 20% or greater. This exam was interpreted at Station ID: [id number]. NOTE: For mammograms, a report in lay terms will be sent to the patient. Approximately 15% of breast malignancies will not be visualized mammographically. In the management of a palpable breast mass, a negative mammogram must not discourage biopsy of a clinically suspicious lesion. Electronically Signed By: Bob Samll M.D. ar/:10/04/2023 07:20:18 ACR BI-RADS Category 0: Incomplete 3340F PARENCHYMAL PATTERN: (D) - The breast(s) demonstrate(s) heterogeneously dense fibroglandular parenchy ma. BI-RADS CATEGORY: (0) - 0 Ultrasound [id number] Immediate follow-up LATERALITY: (R)
== END 2023-10-03 12:44 | disposition home or self-care (01) ==
LOC: DI 12:43
PROVIDERS: ATTEND Physician Assistant
DX: R92.8 Other abnormal and inconclusive findings on diagnostic imaging of breast (principal); R92.333 Mammographic heterogeneous density, bilateral breasts

== ENCOUNTER 2024-03-20 13:05 | Emergency (ER) | payer BC ==
[2024-03-20 13:29] VITALS: O2SAT 98
--- NOTE | 2024-03-20 13:37 | ED Physician Documentation ---
PD HPI ABD PAIN - Stated complaint Stated Complaint: LT FLANK PX - Chief complaint Chief Complaint: Abd Pain - History obtained from History obtained from: Patient - History of Present Illness Timing - onset: Last night Timing - duration: Hours Timing - details: Gradual onset, Still present Quality: Cramping, Sharp, Pain Location: LLQ Radiation: Left flank Improved by: Laying still Worsened by: Moving, Position, Palpation Similar symptoms before: Has not had sx before Recently seen: Clinic - Additional information Additional information: Naila Sommer is sent to the emergency department from the clinic where she presented with left lower quadrant and left flank pain. She is on her menses there is blood in the urine and there is a question of kidney stone versus diverticulitis. She has a negative test in the clinic today. Her urinalysis is unremarkable otherwise. Review of Systems Constitutional: denies: Fever Eyes: denies: Decreased vision Ears: denies: Ear pain Nose: denies: Congestion Throat: denies: Sore throat Cardiac: denies: Chest pain / pressure Respiratory: denies: Dyspnea, Cough GI: reports: Abdominal Pain. denies: Nausea, Vomiting, Constipation, Diarrhea : reports: Vaginal bleeding. 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 - Present Medications Home Medications: Ambulatory Orders Medication Instructions Recorded Confirmed Amox/Clav 875/125 [Augmentin 1 tablet PO Q12H 3 Days #6 tablet 06/24/23 875/125 Tab] HYDROcod/ACETAM 5/325 [[place] 5/325] 1 each PO Q6H PRN #20 tablet 06/24/23 Ondansetron Odt [Zofran Odt] 4 mg PO Q6H PRN #10 tablet 06/24/23 - Allergies Allergies/Adverse Reactions: Allergies Allergy/AdvReac Type Severity Reaction Status Date / Time No Known Drug Allergies Allergy Verified 03/20/24 13:16 - Social History Does the pt smoke?: No Smoking Status: Never smoker Does the pt drink ETOH?: No Does the pt have substance abuse?: No - POLST Patient has POLST: No PD ED PE NORMAL - Vitals Vital signs reviewed: Yes (normal ) - General General: Alert and oriented X 3, No acute distress, Well developed/nourished - HEENT HEENT: Atraumatic, PERRL, EOMI - Neck Neck: Supple, no meningeal sign, No bony TTP - Cardiac Cardiac: RRR, No murmur - Respiratory Respiratory: No respiratory distress, Clear bilaterally - Abdomen Abdomen: Normal bowel sounds, Soft, Non distended, No organomegaly, Other (specific LLQ tenderness to palpation with rebound tenderness and referred tenderness. ) - Back Back: No spinal TTP, Other (L flank tenderness to bimanual palpation of L kidney appears to be referred tenderness. ) - Derm Derm: Normal color, Warm and dry, No rash - Extremities Extremities: No deformity, No edema - Neuro Neuro: Alert and oriented X 3, mohs surgeon 2-12 intact, No motor deficit, No sensory deficit, Normal speech Eye Opening: Spontaneous Motor: Obeys Commands Verbal: Oriented GCS Score: 15 - Psych Psych: Normal mood, Normal affect Results - Vitals Vitals: Vital Signs - 24 hr 03/20/24 13:16 Temperature 37.0 C Heart Rate 76 Respiratory 15 Rate Blood Pressure 113/69 O2 Saturation 98 Oxygen O2 Source Room air - Labs Labs: Laboratory Tests 03/20/24 03/20/24 13:50 13:50 WBC 10.1 RBC 4.61 Hgb 12.3 Hct 38.6 MCV 83.7 MCH 26.7 L MCHC 31.9 L RDW 13.2 Plt Count 272 MPV 9.0 Neut # (Auto) 7.5 H Lymph # (Auto) 1.7 Chambers # (Auto) 0.6 Eos # (Auto) 0.2 Baso # (Auto) 0.1 Absolute Nucleated RBC 0.00 Nucleated RBC % 0.0 Sodium 135 Potassium 3.8 Chloride 103 Carbon Dioxide 25 Anion Gap 7.0 BUN 10 Creatinine 0.5 L Estimated GFR (MDRD) 134 Glucose 100 Calcium 9.3 Total Bilirubin 0.7 AST 23 ALT 27 Alkaline Phosphatase 49 Total Protein 7.2 Albumin 4.2 Globulin 3.0 Albumin/Globulin Ratio 1.4 Lipase 85 H - Rads (name of study) CT ab/pel with Relevant Findings:: Prelim report reviewed (Impression: 1. No bowel obstruction. Suggestion of prior appendectomy. No abnormal bowel wall thickening. No free fluid or free air. Enlarged uterus with fluid within the endometrium extending to the lower uterine segment and cervical suggestion of to suggest BAR WAITER/WAITRESS correlation. ), Final report received ( Possible left ovarian cyst as above. Pelvic ultrasound could be done for further evaluation of uterus and ovaries if clinically indicated.), EMP independent interpretation of test u/s pelvis Relevant Findings:: Prelim report reviewed (Impression: Normal endometrial thickness. No endometrial mass or fluid. Slightly bulky appearing uterus without discrete uterine fibroids. Simple cyst left ovarian as above. No evidence ovarian torsion. No solid appearing ovarian lesion.), EMP independent interpretation of test, See rad report Procedures - Bedside sono Bedside sono by EMP: With use of POCUS the left kidney is imaged it is sonographically nontender there is some evidence of some hydronephrosis which is mild. PD Medical Decision Making - ED course Complexity details: reviewed results, re-evaluated patient, considered zackery jonesal, d/w patient, d/w family Reviewed Lab Results: We reviewed a complete blood cell count showing a normal white blood cell count normal hemoglobin hematocrit and platelets normal differential and normal indices chemistries show normal electrolytes normal kidney and liver function. These laboratory studies do not contribute to a specific diagnosis. They are reassuring for a benign process. The patient appears to have ovarian cyst. This would be consistent. ED course: 43-year-old Naila Sommer is sent to the Emergency Department for evaluation of left lower quadrant abdominal pain that came on earlier this morning. She has had a negative test on a urinalysis done there which did show some occult blood. She is currently on her menses. She is sent to the emergency department for CT scanning of the abdomen and pelvis. The CT scan is concerning for a left ovarian cyst and the patient is not midcycle. She is currently on her menses. For this reason we obtained the ultrasound here in the emergency department rather than doing this as an outpatient. There were no suspicious findings found with the exception of the 3 cm left ovarian cyst. This appears to be a simple cyst. Departure - Departure Disposition: 01 Home, Self Care Clinical Impression: Cyst of ovary Qualifiers: Laterality: left Qualified Code(s): N83.202 - Unspecified ovarian cyst, left side Condition: Stable Instructions: ED Cyst Ovarian Follow-Up: Natalia Denise PA [Primary Care Provider] - Comments: Naila, today it looks like you have an ovarian cyst on the left ovary that is about 3 cm in size. This is usually a benign process and the expectation is resolution of your pain without any specific measures. The pain can recur and a follow-up with your primary care doctor is indicated. Forms: PCP List
[2024-03-20 13:54] LABS: BASOPHILS # (AUTO) 0.1 10^3/uL (0.0-0.1); BASOPHILS % (AUTO) 0.6 %; EOSINOPHILS # (AUTO) 0.2 10^3/uL (0.0-0.7); EOSINOPHILS % (AUTO) 1.8 %; HCT - HEMATOCRIT 38.6 % (37.0-47.0); HGB - HEMOGLOBIN 12.3 g/dL (12.0-16.0); LYMPHOCYTES # (AUTO) 1.7 10^3/uL (1.5-3.5); MEAN CORPUSCULAR HEMOGLOBIN 26.7 pg (27.0-31.0); MEAN CORPUSCULAR HGB CONC 31.9 g/dL (32.0-36.0); MEAN CORPUSCULAR VOLUME 83.7 fL (81.0-99.0); MONOCYTES # (AUTO) 0.6 10^3/uL (0.0-1.0); MONOCYTES % (AUTO) 5.7 %; NEUTROPHILS # (AUTO) 7.5 10^3/uL (1.5-6.6); NEUTROPHILS % (AUTO) 74.6 %; PLT - PLATELET COUNT 272 10^3/uL (130-450); RED BLOOD COUNT 4.61 10^6/uL (4.20-5.40); RED CELL DISTRIBUTION WIDTH 13.2 % (12.0-15.0); WHITE BLOOD COUNT 10.1 x10^3/uL (4.8-10.8)
[2024-03-20 14:11] LABS: ALBUMIN 4.2 g/dL (3.2-5.5); ALBUMIN/GLOBULIN RATIO 1.4 (1.0-2.2); BILIRUBIN,TOTAL 0.7 mg/dL (0.2-1.0); CALCIUM 9.3 mg/dL (8.5-10.3); CREATININE 0.5 mg/dL (0.6-1.3); POTASSIUM 3.8 mmol/L (3.5-4.5); TOTAL PROTEIN 7.2 g/dL (6.4-8.9)
[2024-03-20] MEDS ORDERED: iohexoL-300 100 ML VIAL ONE (14:19)
--- NOTE | 2024-03-20 15:07 | CT Report ---
PROCEDURE: Abdomen/Pelvis W INDICATIONS: LLQ pain/tenderness CONTRAST: 100ml [id number] TECHNIQUE: After the administration of intravenous contrast, a CT scan of the abdomen and pelvis was performed. Images were recorded and evaluated at appropriate window settings. Reformats: coronal and sagittal. F or radiation dose reduction, the following was used: automated exposure control, adjustment of mA and /or kV according to patient size. COMPARISON: CT of abdomen and pelvis dated 06/24/2023. FINDINGS: Image quality: Diagnostic. Lower chest: Unremarkable. Liver: No solid mass. Gallbladder: No radiopaque stones or wall thickening. Biliary tree: No intrahepatic or extrahepatic dilation, accounting for age. Spleen: No splenomegaly. Pancreas: No pancreatic ductal dilation. Adrenals: No adrenal nodule. Kidneys and ureters: No hydronephrosis. No renal cystic lesion which requires follow up. No solid mas s. Stomach, bowel and peritoneum: There is no bowel obstruction. No abnormal bowel wall thickening or me senteric fat stranding. Postsurgical changes are seen in right lower quadrant suggestive of prior pamela endectomy. No abscess collection. No free fluid or free air. Lymph nodes: No central or retroperitoneal adenopathy. Vessels: No infrarenal aortic aneurysm. Patent portal vein. PELVIS Reproductive organs: Bulky appearing uterus with fluid and possible debris within distended lower amanda rine segment and cervix, suggest MEDICAL RESEARCH ASSOCIATE correlation. Possible left ovarian cyst measures 2.8 x 2.5 cm in size.. Bladder: No abnormal wall thickening, accounting for underdistention. Pelvic lymph nodes: No pelvic adenopathy by size criteria. Bones: No aggressive osseous abnormality. Other: No significant ventral or inguinal hernia. IMPRESSION: 1. No bowel obstruction. Suggestion of prior appendectomy. No abnormal bowel wall thickening. No free fluid or free air. 2. Enlarged uterus with fluid within endometrium extending to lower uterine segment and cervix sugges t MEDICAL RESEARCH ASSOCIATE correlation. Possible left ovarian cyst as above. Pelvic ultrasound can be done for further sherita luation of uterus and ovaries if clinically indicated. Reviewed by: Jaun Valentin MD on 03/20/2024 3:06 PM PDT Approved by: Jaun Valentin MD on 03/20/2024 3:06 PM PDT Station ID: [id number]
[2024-03-20] MEDS: iohexoL-300 100 ML VIAL IVP ONE (15:11)
--- NOTE | 2024-03-20 16:27 | Ultrasound Report ---
PROCEDURE: Pelvic w/Doppler Complete INDICATIONS: pelvic pain L findings on CT on menses TECHNIQUE: Real-time scanning was performed of the pelvic organs, with image documentation. Additional endovagi nal scanning was necessary due to incomplete visualization of the adnexal and endometrial structures by transabdominal scanning. COMPARISON: CT of abdomen and pelvis from the same day. FINDINGS: Uterus: Uterus is anteverted and enlarged in size at 8.9 x 4.0 x 5.9 cm. The myometrium is homogene ous. The endometrium measures 4 mm in combined thickness. No endometrial mass or fluid. Ovaries: The right ovary measures 1.9 x 1.6 x 1.8 cm, with a calculated ovarian volume of 2.9 cc. T he left ovary measures 3.9 x 2.7 x 3.1 cm, with a calculated ovarian volume of 17.1 cc. Simple appear ing cyst in left ovary is seen measures 2.8 x 2.4 x 2.9 cm in size. Less than 12 follicles can be see n in each ovary. No adnexal masses are seen. No cystic lesions measuring greater than 3 cm. Normal a rterial and venous flow is seen in bilateral ovaries on color Doppler images. Other: No pathologic free abdominal or pelvic fluid. IMPRESSION: 1. Normal endometrial thickness. No endometrial mass or fluid. Slightly bulky appearing uterus withou t discrete uterine fibroids. 2. Simple cyst left ovary as above. No evidence of ovarian torsion. No solid appearing ovarian lesion . Reviewed by: Jaun Valentin MD on 03/20/2024 4:25 PM PDT Approved by: Jaun Valentin MD on 03/20/2024 4:25 PM PDT Station ID: [id number]
[2024-03-20 17:09] VITALS: BP 100/76
== END 2024-03-20 17:02 | disposition home or self-care (01) ==
LOC: ED 13:05
DX: N83.292 Other ovarian cyst, left side (principal)
CPT/HCPCS: 36415; 74177; 76856; 80053; 83690; 85025; 93975; 99283; 99284; Q9967